=== PATIENT | female | born 2000 | race Caucasian/White ===

== ENCOUNTER 2020-01-01 15:50 | Emergency (ER) | payer OTHER, SELFPAY ==
[2020-01-01] VITALS (9 sets, daily range): BP systolic 111–135; BP diastolic 72–89; PULSE 79–122; RESP 19–20; TEMP 36.2–37.3; O2SAT 100
--- NOTE | ~2020-01-01 | XR_ITS ---
EXAMINATION: XR chest 1V portable DATE: 01/01/2020 16:44 INDICATION: Shortness of breath. Medial chest pain. Cough and sore throat. TECHNIQUE: frontal view of the chest was obtained. COMPARISON: None FINDINGS: The lungs are clear with no focal airspace opacities, pulmonary edema, pleural effusion or pneumothor ax. The cardiomediastinal silhouette is normal. Visualized bones and soft tissues are unremarkable. IMPRESSION: 1. Normal chest radiograph. Reviewed, dictated and finalized at location A. IMPRESSION: 1. Normal chest radiograph.
[2020-01-01 16:23] LABS: Basophils Absolute Auto 0.1 K/mm3 (0.0-0.1); Basophils Percent Auto 0.4 % (0.2-1.2); Eosinophils Absolute Auto 0.1 K/mm3 (0-0.3); Eosinophils Percent Auto 0.4 % (0-4.4); Hematocrit 34.3 % (37.0-47.0); Hemoglobin 11.6 g/dL (12.0-15.0); Immature Granulocyte Absolute 0.05 K/mm3 (0.00-0.031); Immature Granulocyte Percent A 0.3 % (0-0.5); Lymphocytes Absolute Auto 1.78 K/mm3 (0.9-3.2); Lymphocytes Percent Auto 11.5 % (18.3-44.2); Mean Corpuscular HGB Conc 33.8 g/dl (32-36); Mean Corpuscular Hemoglobin 27.8 pg (26-34); Mean Corpuscular Volume 82.3 fl (80-100); Mean Platelet Volume 9.6 fl (7.4-10.4); Monocytes Absolute Auto 0.7 K/mm3 (0.1-0.6); Monocytes Percent Auto 4.6 % (2.6-8.5); Neutrophils Absolute Auto 12.9 K/mm3 (1.3-6.7); Neutrophils Percent Auto 82.8 % (45.5-73.1); Platelet Count Result 366 k/mm3 (150-375); Red Blood Count 4.17 M/mm3 (4.2-5.4); Red Cell Distribution Width 13.4 % (11.5-14.5); White Blood Count 15.5 K/mm3 (4.5-10.0)
[2020-01-01 16:32] LABS: INR 0.9; Prothrombin Time 12.3 Seconds (11.1-14.7)
[2020-01-01 16:33] LABS: Partial Thromboplastin Time 26.7 SECONDS (22.3-36.8)
[2020-01-01 16:37] LABS: Lactic Acid Reflex 1.8 mmol/L (0.7-2.1)
[2020-01-01 16:38] LABS: Alanine Aminotransferase 16 U/L (4-35); Albumin Level 4.3 g/dL (3.5-5.1); Alkaline Phosphatase 63 U/L (38-126); Anion Gap 10 mmol/L (8-16); Aspartate Amino Transferase 21 U/L (14-36); Bilirubin,Total 0.3 mg/dL (0.2-1.3); Blood Urea Nitrogen 6 mg/dL (7-17); Calcium 8.9 mg/dL (8.4-10.2); Carbon Dioxide 23 mmol/L (22-30); Chloride 102 mmol/L (98-107); Estimated CRCL calculation 160 ml/min; Estimated Glomerular Filt Rate > 60; Glucose 96 mg/dL (65-105); Potassium 3.5 mmol/L (3.4-5.0); Sodium 135 mmol/L (137-145)
[2020-01-01] MEDS: FAMOTIDINE 20 MG/2 ML VIAL IV PUSH (16:48)
[2020-01-01] MEDS: SODIUM CHLORIDE 0.9% IV 1,000 ML 999 ML IV CONT ×2 (16:48→17:36)
--- NOTE | 2020-01-01 17:10 | ED.GENADULT ---
HPI - General Adult General Chief complaint: Upper Respiratory Infection Stated complaint: sore throat, diff breathing Time Seen by Provider: 01/01/20 15:56 Source: patient and family Mode of arrival: ambulatory Limitations: no limitations History of Present Illness HPI narrative: Patient is a 19-year-old female who presents with shortness of breath cough sore throat congestion rhinorrhea that began today patient notes the symptoms worse with any activity or movement patient notes one episode of emesis as she has also had a few loose stools. Patient on arrival appears uncomfortable but is in no distress. Patient does have history of exercise-induced asthma and tobacco abuse. Patient denies sick contacts or similar occurrence in the past Related Data Home Medications Medication Instructions Recorded Confirmed drospirenone-ethinyl estradiol tablet 01/01/20 [Monica] ergocalciferol (vitamin D2) 01/01/20 fluoxetine mg 01/01/20 levothyroxine 01/01/20 metformin mg 01/01/20 Allergies Allergy/AdvReac Type Severity Reaction Status Date / Time No Known Allergies Allergy Verified 01/01/20 16:20 Review of Systems Review of Systems: All systems reviewed & are unremarkable except as noted in HPI and below PMFSH Past Medical History Medical History (Updated 01/01/20 @ 19:12 by Luís Waters PA-C) Asthma Social History Social History Smoking status: Current every day smoker Exam Narrative: Exam Narrative: GENERAL: Well-appearing, well-nourished, and in no acute distress. HEAD: Normocephalic, atraumatic. EYES: PERRLA and EOMI. ENT: Nares clear, no rhinorrhea or epistaxis. Mucous membranes moist. Oropharynx without tonsillar hypertrophy exudate or other lesions. NECK: Supple. No adenopathy or masses. CHEST: Clear to auscultation. No respiratory distress. No wheezes rales or rhonchi HEART: Regular rate and rhythm. No murmur heard. Normal peripheral pulses. ABDOMEN: Soft, nontender, nondistended EXTREMITIES: Normal range of motion. No edema. SKIN: Warm, dry, no rash. NEURO: No focal deficits. Alert and oriented x3. Cranial nerves II through XII grossly intact PSYCH: Normal mood and affect. Course Course Emergency Course: Patient is findings treatment plan and diagnosis agreeing to follow-up as directed or to return if symptoms worsen or concerns was hydrated in the emergency department made aware of case findings treatment plan diagnosis Vital Signs Vital signs: Vital Signs Temperature 99.1 F 01/01/20 16:04 Pulse Rate 114 H 01/01/20 16:04 Respiratory Rate 20 01/01/20 16:04 Blood Pressure 134/89 01/01/20 16:04 Pulse Oximetry 100 01/01/20 16:04 Temperature 99.1 F 01/01/20 16:04 Pulse Rate 99 01/01/20 16:46 Respiratory Rate 20 01/01/20 16:04 Blood Pressure 111/79 01/01/20 16:46 Pulse Oximetry 100 01/01/20 16:46 Medical Decision Making MDM Narrative Medical decision making narrative: Patients chest x-ray and labs are without significant high risk changes. Cardiac risk factors were reviewed. Patient is felt likely to be low risk for ACS and reasonable for further risk stratification testing as an outpatient. A low-risk Wells criteria is noted. PE is felt to be unlikely. Patient tested with COVID and will self quarantine until results have been obtained. patient is felt to be resonable for continued evaluation as an outpatient. Vital Signs Vital Signs: Vital Signs Temperature 99.1 F 01/01/20 16:04 Pulse Rate 114 H 01/01/20 16:04 Respiratory Rate 20 01/01/20 16:04 Blood Pressure 134/89 01/01/20 16:04 Pulse Oximetry 100 01/01/20 16:04 Temperature 99.1 F 01/01/20 16:04 Pulse Rate 99 01/01/20 16:46 Respiratory Rate 20 01/01/20 16:04 Blood Pressure 111/79 01/01/20 16:46 Pulse Oximetry 100 01/01/20 16:46 Lab Data Result diagrams: 01/01/20 16:15 01/01/20
[2020-01-01] MEDS: MORPHINE SULFATE 4 MG/ML INJ IV PUSH (17:22)
[2020-01-01 18:07] LABS: Add Urine Microscopic? NO; Appearance Urine Clear (Clear); Bilirubin Urine Negative (Negative); Blood Urine Negative (Negative); Color Urine Straw (Yellow); Glucose Urine UA Negative (Negative); Ketones Urine Negative (Negative); Leukocyte Esterase Ur Negative LEU/UL (Negative); Nitrate Urine Negative (Negative); Protein Urine Negative (Negative); RBC Urine 0-2 /hpf (0-2); Specific Grav Ur 1.008 (1.001-1.035); Squamous Epithelial Cell Urine Occasional /hpf (Few); Urobilinogen Urine Negative mg/dL (<2.0); WBC Urine 0-3 /hpf
[2020-01-01 18:45] LABS: D Dimer 0.26 ug/mL (<0.48)
[2020-01-02 00:03] LABS: SARS-CoV-2 RNA PCR Negative
== END 2020-01-01 19:31 | disposition home or self-care (01) ==
PROVIDERS: Emergency Medicine Emergency Medical Services; Emergency Provider Family Medicine; PCP Family Medicine
DX: J06.9 Acute upper respiratory infection, unspecified (principal); Z20.828 Contact with and (suspected) exposure to other viral communicable diseases; J45.990 Exercise induced bronchospasm; F17.210 Nicotine dependence, cigarettes, uncomplicated
CPT/HCPCS: 36415; 71045; 80053; 81003; 81025; 83605; 85025; 85380; 85610; 85730; 86140; 87040; 87081; 87635; 87880; 96361; 96365; 96375; 99284; C9803; J0131; J2270; J7030; U0003

== ENCOUNTER 2020-01-20 15:35 | Outpatient (CLI) | payer OTHER, SELFPAY ==
[2020-01-20 15:51] LABS: Basophils Absolute Auto 0.1 K/mm3 (0.0-0.1); Basophils Percent Auto 0.5 % (0.2-1.2); Eosinophils Absolute Auto 0.1 K/mm3 (0-0.3); Eosinophils Percent Auto 0.7 % (0-4.4); Hemoglobin 11.6 g/dL (12.0-15.0); Immature Granulocyte Absolute 0.03 K/mm3 (0.00-0.031); Immature Granulocyte Percent A 0.2 % (0-0.5); Lymphocytes Absolute Auto 3.48 K/mm3 (0.9-3.2); Lymphocytes Percent Auto 26.8 % (18.3-44.2); Mean Corpuscular HGB Conc 33.1 g/dl (32-36); Mean Corpuscular Hemoglobin 27.7 pg (26-34); Mean Corpuscular Volume 83.5 fl (80-100); Mean Platelet Volume 9.2 fl (7.4-10.4); Monocytes Absolute Auto 0.5 K/mm3 (0.1-0.6); Monocytes Percent Auto 3.8 % (2.6-8.5); Neutrophils Absolute Auto 8.9 K/mm3 (1.3-6.7); Platelet Count Result 427 k/mm3 (150-375); Red Blood Count 4.19 M/mm3 (4.2-5.4); Red Cell Distribution Width 12.8 % (11.5-14.5)
[2020-01-20 16:43] LABS: Erythrocyte Sedimentation Rate 36 mm/hr (0-20)
[2020-01-20 16:57] LABS: Alanine Aminotransferase 19 U/L (4-35); Albumin Level 4.3 g/dL (3.5-5.1); Alkaline Phosphatase 65 U/L (38-126); Anion Gap 10 mmol/L (8-16); Aspartate Amino Transferase 21 U/L (14-36); Bilirubin,Total 0.2 mg/dL (0.2-1.3); Blood Urea Nitrogen 10 mg/dL (7-17); CRP 3.2 mg/dL (<1.0); Calcium 9.5 mg/dL (8.4-10.2); Carbon Dioxide 25 mmol/L (22-30); Chloride 100 mmol/L (98-107); Estimated Glomerular Filt Rate > 60; Glucose 103 mg/dL (65-105); Sodium 135 mmol/L (137-145)
== END 2020-01-20 15:36 | disposition home or self-care (01) ==
PROVIDERS: PCP Family Medicine; Visit Provider Internal Medicine Hematology & Oncology
DX: D72.829 Elevated white blood cell count, unspecified (principal)
CPT/HCPCS: 36415; 80053; 85025; 85652; 86140